=== PATIENT | female | born 1935 | race Caucasian/White ===

== ENCOUNTER → 2017-12-06 | Outpatient (CLI) | payer OTHER ==
[~2017-12-06] MED LIST: CEPH500 PO; Pyridium200 MG PO
== END | disposition home or self-care (01) ==
LOC: LAB 16:10
DX: N64.52 Nipple discharge (principal)
CPT/HCPCS: 87070; 87205

== ENCOUNTER → 2018-01-29 | Outpatient (CLI) | payer OTHER | END | disposition home or self-care (01) | LOC: LAB 15:30 | DX: N64.52 Nipple discharge (principal) | CPT/HCPCS: 87070; 87205 ==

== ENCOUNTER 2018-03-27 15:01 | Emergency (ER) | payer OTHER ==
[~2018-03-27] VITALS: Ht 167.6 cm; Wt 66.7 kg
[2018-03-27] MEDS ORDERED: CEPH500 PO (15:24)
[2018-03-27] MEDS ORDERED: Pyridium200 MG PO (15:24)
== END 2018-03-27 15:34 | disposition home or self-care (01) ==
LOC: ER 15:01
DX: N39.0 Urinary tract infection, site not specified (principal)
CPT/HCPCS: 87077; 87086; 87186; 99283

== ENCOUNTER → 2020-07-13 | Outpatient (CLI) | payer OTHER | END | disposition home or self-care (01) | LOC: LAB SHORT 17:57 → LAB 17:57 | DX: R31.9 Hematuria, unspecified (principal) | CPT/HCPCS: 87086 ==

== ENCOUNTER 2021-06-06 12:29 | Emergency (ER) | payer OTHER, MEDICARE | END 2021-06-06 14:03 | disposition home or self-care (01) | LOC: ER 12:29 | DX: J44.0 Chronic obstructive pulmonary disease with (acute) lower respiratory infection (principal); J20.9 Acute bronchitis, unspecified; N39.0 Urinary tract infection, site not specified; F17.200 Nicotine dependence, unspecified, uncomplicated; I50.9 Heart failure, unspecified; Z88.1 Allergy status to other antibiotic agents; Z79.01 Long term (current) use of anticoagulants; Z79.899 Other long term (current) drug therapy ==

== ENCOUNTER 2021-12-08 13:25 | Emergency (ER) | payer OTHER ==
[~2021-12-08] VITALS: Ht 167.6 cm; Wt 58.1 kg
[~2021-12-08 13:25] MED LIST changes: +ALBU90OI INH; +AMOCLA875 PO; +AZIT250 PO; +ELIQUIS5 MG PO; +FAMO20 PO; +FURO20 PO; +FURO40 PO; +GUAI600T33 PO; +IPRAT-ALBUT 0.5-3 ML INH; +LEVSOD75 PO; +Mucinex600 MG PO; +OMEP20ER PO; +PRED20 PO; +Prinivil10 MG PO; +SPIRIVA RESPIMAT4 G3 INH; +SYMBICORT 160-4.6 GM INH
[2021-12-08 14:29] LABS: BASOPHILS ABSOLUTE AUTO 0.04 K/mm3 (0.00-0.23); BASOPHILS PERCENT AUTO 0 % (0-2); EOSINOPHILS ABSOLUTE AUTO 0.03 K/mm3 (0.00-0.68); EOSINOPHILS PERCENT AUTO 0 % (0-6); Hemoglobin 15.4 g/dL (11.5-16.0); IMMATURE GRAN ABSOLUTE AUTO 0.02 K/mm3 (0.00-0.10); IMMATURE GRAN PERCENT AUTO 0 % (0-1); LYMPHOCYTES ABSOLUTE AUTO 1.87 K/mm3 (0.84-5.20); LYMPHOCYTES PERCENT AUTO 21 % (21-46); MONOCYTES ABSOLUTE AUTO 0.65 K/mm3 (0.16-1.47); MONOCYTES PERCENT AUTO 7 % (4-13); Mean Corpuscular HGB 33.4 pg (26.0-34.0); Mean Corpuscular Volume 95 fL (80-100); Mean Platelet Volume 11.2 fL (9.1-12.4); NEUTROPHILS ABSOLUTE AUTO 6.28 K/mm3 (1.96-9.15); NEUTROPHILS PERCENT AUTO 71 % (41-73); Platelet Count 234 K/mm3 (150-400); RDW Coefficient Variation 12.7 % (11.7-14.2); Red Blood Cell Count 4.61 M/mm3 (3.80-5.20); White Blood Cell Count 8.89 K/mm3 (4.00-11.30)
[2021-12-08 15:01] LABS: Alanine Aminotransfer (ALT/SGP 19 U/L (12-78); Albumin, Blood 3.8 g/dL (3.4-5.0); Albumin/Globulin Ratio 1.1 (0.8-1.8); Alk Phos 68 U/L (50-136); Anion Gap 8 mmol/L (6-16); Aspartate Aminotrans (AST/SGOT 23 U/L (12-37); Bilirubin, Total 0.8 mg/dL (0.1-1.0); Blood Urea Nitrogen 13 mg/dL (8-24); Bun/Creatinine Ratio 15.9 (12.0-20.0); CO2, Blood 27 mmol/L (21-32); Calcium, Blood 9.2 mg/dL (8.5-10.1); Chloride, Blood 103 mmol/L (98-108); Creatinine, Blood 0.82 mg/dL (0.40-1.00); Globulin, Blood 3.5 g/dL (2.2-4.0); Glomerular Filtration Rate >60 (60-); Glucose, Blood 95 mg/dL (70-99); Potassium, Blood 3.9 mmol/L (3.5-5.5); Sodium, Blood 138 mmol/L (136-145); Total Protein, Blood 7.3 g/dL (6.4-8.2); Troponin I <0.015 ng/mL (0.000-0.040)
[2021-12-08] MEDS ORDERED: PRED20 PO (16:44)
[2021-12-08] MEDS ORDERED: AZIT250 PO (16:44)
[2021-12-08] MEDS ORDERED: ALBU2.5V5 NEB (16:44)
== END 2021-12-08 17:00 | disposition home or self-care (01) ==
LOC: ER 13:25
PROVIDERS: Physician Assistant
DX: J44.1 Chronic obstructive pulmonary disease with (acute) exacerbation (principal); I50.9 Heart failure, unspecified; F17.210 Nicotine dependence, cigarettes, uncomplicated
CPT/HCPCS: 36415; 71046; 80053; 83880; 84484; 85025; 93005; 93010; 96374; 99285-25; A9270; J2930

== ENCOUNTER 2024-10-17 23:48 | Inpatient (IN) | payer MEDICARE ==
[~2024-10-17] VITALS: Ht 170.2 cm; Wt 51.8 kg
[~2024-10-17 23:48] MED LIST changes: +ALBU2.5V5 NEB
[2024-10-18] VITALS (19 sets, daily range): BP systolic 103–176; BP diastolic 62–86
[2024-10-18 00:22] LABS: BASOPHILS ABSOLUTE AUTO 0.02 K/mm3 (0.00-0.23); BASOPHILS PERCENT AUTO 0 % (0-2); EOSINOPHILS ABSOLUTE AUTO 0.01 K/mm3 (0.00-0.68); EOSINOPHILS PERCENT AUTO 0 % (0-6); Hematocrit 42.6 % (33.0-51.0); Hemoglobin 14.9 g/dL (11.5-16.0); IMMATURE GRAN ABSOLUTE AUTO 0.08 K/mm3 (0.00-0.10); IMMATURE GRAN PERCENT AUTO 1 % (0-1); LYMPHOCYTES ABSOLUTE AUTO 1.08 K/mm3 (0.84-5.20); LYMPHOCYTES PERCENT AUTO 8 % (21-46); MONOCYTES ABSOLUTE AUTO 0.52 K/mm3 (0.16-1.47); MONOCYTES PERCENT AUTO 4 % (4-13); Mean Corpuscular HGB 34.3 pg (26.0-34.0); Mean Corpuscular Volume 98 fL (80-100); Mean Platelet Volume 11.7 fL (9.1-12.4); NEUTROPHILS ABSOLUTE AUTO 11.65 K/mm3 (1.96-9.15); NEUTROPHILS PERCENT AUTO 87 % (41-73); Platelet Count 204 K/mm3 (150-400); RDW Coefficient Variation 12.4 % (11.7-14.2); RDW Standard Deviation 45.1 fL (35.1-46.3); Red Blood Cell Count 4.35 M/mm3 (3.80-5.20); White Blood Cell Count 13.36 K/mm3 (4.00-11.30)
[2024-10-18 00:37] LABS: Albumin, Blood 3.7 g/dL (3.4-5.0); Albumin/Globulin Ratio 1.1 (0.8-1.8); Bilirubin, Total 0.7 mg/dL (0.1-1.0); Bun/Creatinine Ratio 20.5 (12.0-20.0); Creatinine, Blood 0.68 mg/dL (0.40-1.00); Globulin, Blood 3.3 g/dL (2.2-4.0); Potassium, Blood 3.7 mmol/L (3.5-5.5)
[2024-10-18] MEDS ORDERED: Acetaminophen 500 MG Tab PO ONE (01:35)
[2024-10-18 01:51] LABS: Source, Urine Clean Catch
[2024-10-18 02:06] LABS: Bilirubin, Urine Neg (Neg); Blood, Urine 2+ (Neg); Glucose Qualitative, Urine Neg (Neg); Ketones, Urine Neg (Neg); Leukocyte Esterase, Urine 3+ (Neg); Nitrite, Urine Pos (Neg); Protein, Urine 2+ (Neg); Specific Gravity, Urine 1.015 (1.003-1.022); Urobilinogen, Urine NORM (Normal)
[2024-10-18 02:28] LABS: Appearance, Urine Hazy (Clear); Color, Urine Yellow (P-Yellow)
[2024-10-18 02:29] LABS: Bacteria Many /hpf; Red Blood Cells, Urine 0-2 /hpf (0-2); Squamous Epithelial Cells Mod /hpf (Few)
[2024-10-18 02:30] LABS: White Blood Cells, Urine 50-100 /hpf (0-5)
[2024-10-18] MEDS ORDERED: Morphine Sulfate 4 MG/1 ML Injection IV ONE (03:00)
[2024-10-18] MEDS ORDERED: CefTRIAXone Sodium 1,000 MG in NS 100 ML IV ONE (03:30)
[2024-10-18] MEDS ORDERED: NS 1,000 ML IV SCH (03:30)
[2024-10-18] MEDS ORDERED: Ondansetron HCl 2 MG / ML 2ML Vial IV PRN (03:35)
[2024-10-18] MEDS ORDERED: FentaNYL Citrate 50 MCG/ML 2 ML Injection IV PRN ×3 (03:35→08:50)
[2024-10-18] MEDS ORDERED: FLU VACC TS2024-25(6MOS UP)/PF 45 MCG/0.5 ML SYRINGE IM ONE (03:35)
[2024-10-18 04:50] LABS: BASOPHILS ABSOLUTE AUTO 0.02 K/mm3 (0.00-0.23); BASOPHILS PERCENT AUTO 0 % (0-2); EOSINOPHILS ABSOLUTE AUTO 0.01 K/mm3 (0.00-0.68); EOSINOPHILS PERCENT AUTO 0 % (0-6); Hematocrit 41.7 % (33.0-51.0); Hemoglobin 14.8 g/dL (11.5-16.0); IMMATURE GRAN ABSOLUTE AUTO 0.03 K/mm3 (0.00-0.10); IMMATURE GRAN PERCENT AUTO 0 % (0-1); LYMPHOCYTES ABSOLUTE AUTO 1.08 K/mm3 (0.84-5.20); LYMPHOCYTES PERCENT AUTO 9 % (21-46); MONOCYTES ABSOLUTE AUTO 0.66 K/mm3 (0.16-1.47); MONOCYTES PERCENT AUTO 6 % (4-13); Mean Corpuscular HGB 34.4 pg (26.0-34.0); Mean Corpuscular HGB Conc 35.5 g/dL (31.5-36.5); Mean Corpuscular Volume 97 fL (80-100); Mean Platelet Volume 11.3 fL (9.1-12.4); NEUTROPHILS ABSOLUTE AUTO 10.14 K/mm3 (1.96-9.15); NEUTROPHILS PERCENT AUTO 85 % (41-73); Platelet Count 202 K/mm3 (150-400); RDW Coefficient Variation 12.5 % (11.7-14.2); RDW Standard Deviation 44.7 fL (35.1-46.3); White Blood Cell Count 11.94 K/mm3 (4.00-11.30)
[2024-10-18 05:00] LABS: Prothrombin Time Results 10.7 Sec (9.7-11.5)
--- NOTE | 2024-10-18 05:06 | NUR ---
ARRIVAL TO UNIT ASSUMED CARE AT 0350, REPORT FROM ED RN NANI. PT ARRIVED TO SURGICAL FLOOR 0350. A&OX3, UNSURE OF MONTH/YEAR. CANNOT RECALL FALL/EVENT LEADING TO HOSPITALIZATION. PLEASANT & COOPERATIVE WITH CARES. ABLE TO VOICE NEEDS. ORIENTED TO UNIT; CALL LIGHT IN REACH. PT VOICED UNDERSTANDING OF PLAN OF CARE, DENIES QUESTIONS/CONCERNS AT THIS TIME.
--- NOTE | 2024-10-18 05:08 | NUR ---
SHIFT SUMMARY NPO STATUS SINCE ADMISSION TO SURGICAL FLOOR AT 0350. PT STATES ESTIMATED LAST PO INTAKE WAS 1200 LUNCH ON 10/17/24. A&OX3. ABLE TO VOICE NEEDS; CALL LIGHT USED APPROPRIATELY T/O SHIFT. PAIN MANAGED USING NPIS AND PER EMAR. PT DENIES N/T. DENIES NAUSEA, SOB, CHEST PAIN/PRESSURE. TELEMTRY IN PLACE PER ORDERS. CONTINUOUS PULSE OXIMETRY PER PROTOCOL R/T IV NARCOTICS PER EMAR. 2L NC OVERNIGHT TO MAINTAIN SPO2 >/= 90%. BEDREST ORDER PREOPERATIVELY. PUREWICK IN PLACE. PT VOIDING WITHOUT DIFFICULTY OR DYSURIA. PT ABLE TO REST DURING SHIFT. PT VOICED UNDERSTANDING OF PLAN OF CARE; DENIES QUESTIONS/CONCERNS AT THIS TIME.
[2024-10-18 05:10] LABS: Albumin, Blood 3.7 g/dL (3.4-5.0); Albumin/Globulin Ratio 1.1 (0.8-1.8); Bilirubin, Total 0.8 mg/dL (0.1-1.0); Bun/Creatinine Ratio 15.8 (12.0-20.0); Calcium, Blood 8.7 mg/dL (8.5-10.1); Creatinine, Blood 0.63 mg/dL (0.40-1.00); Globulin, Blood 3.3 g/dL (2.2-4.0); Potassium, Blood 3.8 mmol/L (3.5-5.5)
[2024-10-18] MEDS ORDERED: Ipratropium/Albuterol SulF 2.5-0.5MG/3 ML Amp INH PRN (10:30)
[2024-10-18] MEDS ORDERED: Tiotropium Bromide 2.5 MCG/ACT MIST INHAL (10 ACT/4 GM) INH SCH (10:30)
[2024-10-18] MEDS ORDERED: Albuterol 2.5 MG/3 ML VIAL INH PRN (10:30)
[2024-10-18] MEDS ORDERED: GuaiFENesin 600 MG TabCR PO SCH (10:52)
[2024-10-18] MEDS ORDERED: Levothyroxine Sodium 0.075 MG Tab PO SCH (10:53)
[2024-10-18] MEDS ORDERED: Omeprazole 20 MG CapCR PO SCH (10:54)
[2024-10-18] MEDS ORDERED: Mometasone/Formoterol MDI 200/5 mcg 13 GM INH SCH (10:55)
[2024-10-18] MEDS ORDERED: Albuterol HFA200 ACT/6.7 GM INH INH PRN (12:50)
[2024-10-18] MEDS ORDERED: Ipratropium/Albuterol SulF 2.5-0.5MG/3 ML Amp ONE (15:19)
[2024-10-18] MEDS ORDERED: CeFAZolin Sodium 2,000 MG in NS 100 ML IV SCH (15:25)
--- NOTE | 2024-10-18 15:27 | NUR ---
PT ARRIVES TO PACU VIA BED AT 1515 FOR PREOP CARE. ALERT & COOPERATIVE. SURGICAL PACK COMPLETE. SURGICAL HAT/PAS SLEEVE TO LLE/BP CUFF PLACED. AFEBRILE/HR PACED AT 60. LR AT TKO. DUO NEB GIVEN AT 1525. TELEMETRY REMOVED & MACHINE GREASER NOTIFIED. PT RESTING QUIETLY AT THIS TIME.
[2024-10-18] MEDS ORDERED: Tranexamic Acid 1,000 MG in NS 100 ML IV SCH (15:30)
[2024-10-18] MEDS ORDERED: FentaNYL Citrate 50 MCG/ML 2 ML Injection ONE ×2 (15:38→18:13)
[2024-10-18] MEDS ORDERED: propofoL 20 ML IV ONE (15:38)
[2024-10-18] MEDS ORDERED: Dexamethasone Sod Phos 10 MG/ML 1ML VIAL ONE (15:38)
[2024-10-18] MEDS ORDERED: Bupivacaine 0.5% HCl 5 MG/ML 30MLVIAL ONE (15:47)
[2024-10-18] MEDS ORDERED: EpiNEPhrine 1 MG/1 ML 1ML Vial ONE (15:47)
--- NOTE | 2024-10-18 16:28 | NUR ---
PT TO OR 3 VIA BED IN STABLE CONDITION AT 1610.
[2024-10-18] MEDS ORDERED: Ondansetron HCl 2 MG / ML 2ML Vial ONE (17:30)
[2024-10-18] MEDS ORDERED: Ketorolac Tromethamine 30mg Vial ONE (18:25)
[2024-10-18] MEDS ORDERED: HYDROmorphone HCl/Pf 1MG SYR ONE (18:31)
--- NOTE | 2024-10-18 19:48 | NUR ---
SHIFT SUMMARY PT RETURNED TO HER ROOM AROUND 1900, POST OP VITALS STARTED, SHE REPORTS PAIN TOLERABLE AT THIS TIME, AQUACELL C/D/I ON R HIP. PUREWICK IN PLACE FOR THE EVENING. NO ACUTE EVENTS THIS SHIFT, CALL LIGHT IN REACH.
[2024-10-19] MEDS ORDERED: CeFAZolin Sodium 2,000 MG in NS 100 ML IV SCH
[2024-10-19 00:09] VITALS: BP 140/79
[2024-10-19 04:22] VITALS: BP 146/72
[2024-10-19 04:44] LABS: Hematocrit 38.1 % (33.0-51.0); Mean Corpuscular HGB 34.1 pg (26.0-34.0); Mean Corpuscular HGB Conc 34.1 g/dL (31.5-36.5); Mean Corpuscular Volume 100 fL (80-100); Mean Platelet Volume 12.3 fL (9.1-12.4); Platelet Count 150 K/mm3 (150-400); RDW Coefficient Variation 12.4 % (11.7-14.2); Red Blood Cell Count 3.81 M/mm3 (3.80-5.20); White Blood Cell Count 12.52 K/mm3 (4.00-11.30)
[2024-10-19] MEDS ORDERED: CefTRIAXone Sodium 1,000 MG in NS 100 ML IV SCH (06:00)
--- NOTE | 2024-10-19 06:18 | NUR ---
SHIFT SUMMARY NOC. PT POD 1 FOR RIGHT SHERIDAN HIP. PT A/O X4, PT TOLERATING PO INTAKE AND VOIDING URINE VIA PUREWICK. PT DENIES PAIN THIS SHIFT AND DENIES MEDICATION WHEN OFFERED T/O SHIFT. CAROLYN ON R HIP C/D/I. CALL LIGHT IN REACH AND MAKES NEEDS KNOWN.
[2024-10-19 07:12] VITALS: BP 135/62
[2024-10-19] MEDS ORDERED: Acetaminophen 325 MG TABLET PO PRN (07:30)
--- NOTE | 2024-10-19 08:16 | NUR ---
THIS RN ASSUMED CARE AT APPROX 0715. PATIENT REPORTING 3/10 HEADACHE AND RLE PAIN. NO PAIN MEDICATIONS ORDERED ON EMAR EXCEPT FOR IV FENTANYL. MD VEGA CONTACTED - RECEIVED ORDER FOR PO TYLENOL 650MG Q6 PRN FOR MILD PAIN. DISCUSSED POSSIBLE NEED FOR PO NARCOTIC SUCH NORCO FOR POST OP PAIN WHILE WORKING WITH PHYSICAL THERAPY - MD TO REVIEW CHART AND PLACE ORDERS. PO TYLENOL ADMINISTERED PER EMAR WITH SOME RELIEF. CALL LIGHT IN REACH.
[2024-10-19] MEDS ORDERED: TraMADol HCl 50 MG Tab PO PRN (09:00)
--- NOTE | 2024-10-19 10:28 | NUR ---
MORNING NOTE THIS RN ASSUMED CARE AT APPROX 0715. PATIENT ALERT AND ORIENTED X4. COMMUNICATING NEEDS EFFECTIVELY. VSS. TELEMETRY SHOWING V PACED 60 PER PARI MUTUAL TICKET CHECKER. BP STABLE. DENIES CHEST PAIN, PRESSURE. TITRATED FROM 1L VIA NC TO ROOM AIR. PATIENT STATES THAT SHE DOES USE 1-2L VIA NC PRN AT HOME FOR SHORTNESS OF BREATH. POD 1 R SHERIDAN HIP - DRESSING C/D/I. TOLERATING PO INTAKE. SEE PREVIOUS NOTE REGARDING PAIN MANAGEMENT - MANAGING PER EMAR AND WITH ICE PACK. ABLE TO STAND AND TRANSFER FROM BED TO CHAIR WITH 1P ASSIST FWW KEMAL - IS CURRENTLY WORKING WITH PHYSICAL THERAPY. CORDELIA ZHU - PULL UP ATTENDS IN PLACE. CALL LIGHT IN REACH.
[2024-10-19 14:41] VITALS: BP 105/64
--- NOTE | 2024-10-19 17:25 | NUR ---
SHIFT SUMMARY NO ACUTE CHANGES SINCE PREVIOUS DOCUMENTATION. VSS. PATIENT REMAINS ON ROOM AIR THROUGHOUT DAY, SATs >90%. UP WITH 1P ASSIST FWW GB TO RECLINER CHAIR, BSC. AQUACEL DRESSING TO RLE C/D/I. TOLERATING PO INTAKE. MANAGING PAIN PER EMAR. PATIENT ATTEMPTED TO USE BSC TO VOID - UNABLE TO DO SO. BLADDER SCAN PERFORMED SHOWING 150ML. PATIENT DECLINES NEED TO VOID AT THIS TIME. MINIMAL TOTAL URINARY OUTPUT TODAY. ENCOURAGING INCREASED ORAL INTAKE. CALL LIGHT IN REACH. WILL CONTINUE TO MONITOR AND REPORT TO ONCOMING RN.
[2024-10-19 19:58] VITALS: BP 120/69
[2024-10-20 02:14] VITALS: BP 134/75
[2024-10-20] MEDS ORDERED: TraMADol HCl 50 MG Tab PO PRN (02:40)
[2024-10-20] MEDS ORDERED: Lactated Ringer's 1,000 ML IV SCH (03:00)
[2024-10-20 07:11] VITALS: BP 133/71
--- NOTE | 2024-10-20 07:34 | NUR ---
SHIFT SUMMARY NOC. PT POD 2 FOR RIGHT SHERIDAN HIP. AQUACEL C/D/I. PT MEDICATED FOR PAIN WITH MINIMAL RELIEF. LABORATORY MILLER CALLED HOSPITALIST FOR NEW PAIN ORDERS AND FLUIDS D/T LOW URINARY OUTPUT. PT TOLERATING DIET AND REPORTS BETTER PAIN CONTROL. MAKES NEEDS KNOWN AND CALL LIGHT IN REACH.
[2024-10-20] MEDS ORDERED: VISBIOME 112.51 EACH PO (12:13)
[2024-10-20] MEDS ORDERED: TRAM50 PO (12:14)
[2024-10-20 15:12] VITALS: BP 141/74
--- NOTE | 2024-10-20 18:52 | NUR ---
SHIFT SUMMARY PT WORKED w/ PT & OT TODAY. FEELS SLIGHTLY MORE CONFIDENT ON GOING HOME TOMORROW BUT IS STILL APPREHENSIVE. REPORTS PAIN IS HIGH BUT UNDERSTANDS THE INCREASE IN ACTIVITY WILL CAUSE THIS. CAROLYN SHIELDS. PLEASANT. HAS INCREASED HER PO IINTAKE BUT UO CONTs TO BE LOW.
[2024-10-20 18:58] VITALS: BP 159/84
[2024-10-20] MEDS ORDERED: Aspirin 81 MG Chew PO SCH (21:00)
[2024-10-20] MEDS ORDERED: Aspirin 325 MG Tab PO SCH (21:00)
[2024-10-21 04:11] VITALS: BP 157/73
--- NOTE | 2024-10-21 04:48 | NUR ---
SHIFT SUMMARY POD 3 R SHERIDAN HIP R/T GLF. NO ACUTE CHANGES OVERNIGHT. VSS, TELE IN USE - V PACED @ 60. TOLERATING ORALS. IV FLUIDS/ABX INFUSING PER EMAR. VOIDING. AMBULATES USING FWW c GB & 1 PERSON ASSIST. PT REPORTS PAIN TOLERABLE, MEDICATED PER EMAR. AQUACEL C/D/I. ANTICIPATED DISCHARGE HOME c HH. CALL LIGHT IN REACH, BED IN LOWEST POSITION, WILL REPORT TO DAY RN.
[2024-10-21 06:57] VITALS: BP 140/69
[2024-10-21] MEDS ORDERED: ELIQUIS5 M2 PO (09:53)
--- NOTE | 2024-10-21 09:55 | NUR ---
VERIFIED W/ DR. LESA MARCELO TO RESTART HOME ELIQUIS AND DC BABY ASPIRIN
[2024-10-21 10:43] VITALS: BP 154/70
--- NOTE | 2024-10-21 12:09 | NUR ---
Spiritual Care Visit. Pt. is resting in bed but responds when I enter the room. Pt. is pleasant. Pt. verbalizes that she is awaiting her ride home. Facilitated a life review and consider matters of moe and belief. Pt. displays evidence of being engaged, aware, and motivated to get home, Prayed with Pt. Pt. verbalized gratitude for the spiritual care visit.
--- NOTE | 2024-10-21 15:44 | NUR ---
DISCHARGE NOTE PT IS POD3 FOR R SHERIDAN HIP. DRESSING C/D/I, CIRCULATION TO R FOOT INTACT. PT IS AMBULATING 1 ASST W/ FWW AND GB, VOIDING, TOLERATING PO REG DIET. NO ACUTE TELE EVENTS, VSS. PT MEDICATED FOR PAIN W/ TYLENOL AND TRAMADOL PER EMAR W/ SOME RELIEF. PAIN SCRIPT GIVEN TO PT, COPY IN CHART. DC INSTRUCTIONS REVIEWED W/ PT, COPY GIVEN TO PT WELL DRESSINGS. PT STATES SHE HAS HOME ELIQUIS PRESCRIPTION AT HOME, HOME MED REC REVIEWED W/ PT. PT DC'D TO PRIVATE RIDE HOME VIA W/C IN STABLE CONDITION W/ BELONGINGS.
[2024-10-21] MEDS ORDERED: Apixaban 5 MG Tab PO SCH (21:00)
== END 2024-10-21 12:45 | disposition home health service (06) | DRG 522 ==
LOC: ER 23:48 → SURS 10-18 03:30
PROVIDERS: Emergency Medicine; Internal Medicine; Orthopaedic Surgery Sports Medicine; Student in an Organized Health Care Education/Training Program; ADMIT Internal Medicine
PROC: 0SRR0J9 Replacement of Right Hip Joint, Femoral Surface with Synthetic Substitute, Cemented, Open Approach (ICD-10-PCS; principal; 2024-10-18 15:30)
DX: S72.011A Unspecified intracapsular fracture of right femur, initial encounter for closed fracture (principal); E44.0 Moderate protein-calorie malnutrition; N39.0 Urinary tract infection, site not specified; Z68.1 Body mass index [BMI] 19.9 or less, adult; I11.0 Hypertensive heart disease with heart failure; K21.9 Gastro-esophageal reflux disease without esophagitis; E03.9 Hypothyroidism, unspecified; W06.XXXA Fall from bed, initial encounter; J44.9 Chronic obstructive pulmonary disease, unspecified; I48.91 Unspecified atrial fibrillation; I50.9 Heart failure, unspecified; F17.210 Nicotine dependence, cigarettes, uncomplicated; Z90.79 Acquired absence of other genital organ(s); Z90.710 Acquired absence of both cervix and uterus; Z88.1 Allergy status to other antibiotic agents; Z88.8 Allergy status to other drugs, medicaments and biological substances; Z79.01 Long term (current) use of anticoagulants; Z79.890 Hormone replacement therapy; Z86.711 Personal history of pulmonary embolism; Z79.899 Other long term (current) drug therapy; Z79.51 Long term (current) use of inhaled steroids; Z95.0 Presence of cardiac pacemaker; Z86.718 Personal history of other venous thrombosis and embolism; Z91.148 Patient's other noncompliance with medication regimen for other reason; Z66 Do not resuscitate
CPT/HCPCS: 36415; 70450; 71045; 72192; 73502; 80053; 81001; 83880; 84484; 85025; 85027; 85379; 85610; 93005; 93010; 94640; 94664; 94760; 96374; 97110; 97161; 97165; 97530; 97535; 99285; A9270; C1713; C1776; J0171; J0690; J0696; J1100; J1171; J1885; J2270; J2405; J2704; J3010; J7120

== ENCOUNTER 2024-10-31 17:14 | Emergency (ER) | payer MEDICARE ==
[~2024-10-31] VITALS: Ht 167.6 cm; Wt 68.0 kg
[~2024-10-31 17:14] MED LIST changes: +ELIQUIS5 M2 PO; +TRAM50 PO; +VISBIOME 112.51 EACH PO
[2024-10-31 20:36] LABS: BASOPHILS ABSOLUTE AUTO 0.08 K/mm3 (0.00-0.23); BASOPHILS PERCENT AUTO 0 % (0-2); EOSINOPHILS ABSOLUTE AUTO 0.02 K/mm3 (0.00-0.68); EOSINOPHILS PERCENT AUTO 0 % (0-6); Hemoglobin 12.5 g/dL (11.5-16.0); IMMATURE GRAN ABSOLUTE AUTO 0.09 K/mm3 (0.00-0.10); IMMATURE GRAN PERCENT AUTO 0 % (0-1); LYMPHOCYTES ABSOLUTE AUTO 2.34 K/mm3 (0.84-5.20); LYMPHOCYTES PERCENT AUTO 11 % (21-46); MONOCYTES ABSOLUTE AUTO 1.04 K/mm3 (0.16-1.47); MONOCYTES PERCENT AUTO 5 % (4-13); Mean Corpuscular HGB 34.9 pg (26.0-34.0); Mean Corpuscular HGB Conc 34.7 g/dL (31.5-36.5); Mean Corpuscular Volume 101 fL (80-100); Mean Platelet Volume 10.5 fL (9.1-12.4); NEUTROPHILS ABSOLUTE AUTO 16.93 K/mm3 (1.96-9.15); NEUTROPHILS PERCENT AUTO 83 % (41-73); Platelet Count 449 K/mm3 (150-400); RDW Coefficient Variation 13.2 % (11.7-14.2); RDW Standard Deviation 48.6 fL (35.1-46.3); Red Blood Cell Count 3.58 M/mm3 (3.80-5.20)
[2024-10-31] MEDS ORDERED: TraMADol HCl 50 MG Tab PO ONE (21:20)
[2024-10-31] MEDS ORDERED: TRAM50 PO ×2 (21:23→21:53)
[2024-10-31 21:59] VITALS: BP 108/66
== END 2024-11-01 00:13 | disposition home or self-care (01) ==
LOC: ER 17:14
PROVIDERS: Emergency Medicine
DX: G89.18 Other acute postprocedural pain (principal); M25.551 Pain in right hip; J44.9 Chronic obstructive pulmonary disease, unspecified; F17.200 Nicotine dependence, unspecified, uncomplicated; Z79.51 Long term (current) use of inhaled steroids; Z79.899 Other long term (current) drug therapy; Z88.1 Allergy status to other antibiotic agents; Z88.8 Allergy status to other drugs, medicaments and biological substances
CPT/HCPCS: 73502; 85025; 99284-25; A9270